=== PATIENT | male | born 1945 | race Caucasian/White ===

== ENCOUNTER 2016-10-17 10:47 | Emergency (ER) | payer MEDICARE, BC ==
[2016-10-17 11:08] VITALS: BP 151/74
--- NOTE | 2016-10-17 11:49 | EDM.PDOC ---
ED HPI GENERAL MEDICAL PROBLEM - General Chief Complaint: Genitourinary Problem Stated Complaint: CATHETER LEAKING Time Seen by Provider: 10/17/16 11:40 Source of Information: Reports: Patient History Limitations: Reports: No Limitations - History of Present Illness INITIAL COMMENTS - FREE TEXT/NARRATIVE: 71-year-old male presents for a new catheter bag. Patient reports that his urinary collection bag is leaking. He has attempted to fix it with tape and glue but has been unsuccessful. Patient has a catheter in place for the last 2 weeks. He is supposed to have surgery on this Sunday. He reports that he is having prostate surgery in [place]. He denies any fevers, nausea, vomiting, dysuria or hematuria. He is here for a new bag and has no other concerns at this time. - Related Data Allergies Allergy/AdvReac Type Severity Reaction Status Date / Time No Known Allergies Allergy Verified 10/17/16 11:08 Home Meds: Home Meds Albuterol [Proair HFA] 2 puff INH Q4HR PRN 08/06/13 [History] Fluticasone Propionate [Flonase] 2 sprays NS DAILY 08/06/13 [History] Fluticasone/Salmeterol [Advair 500-50] 1 puff INH BID 08/06/13 [History] Insulin Detemir [Levemir] 14 units SQ BEDTIME 08/06/13 [History] Levothyroxine 75 mcg PO DAILY 08/06/13 [History] Tiotropium [Spiriva Handihaler] 1 cap INH DAILY 08/06/13 [History] Novalog 0 unit INJECT QID 10/19/14 [History] Insulin Detemir [Levemir] 12 units SQ ACBREAKFAST 10/20/14 [History] Lisinopril 10 mg PO DAILY #30 tablet 10/23/14 [Rx] Sulfamethoxazole/Trimethoprim [Bactrim Ds Tablet] 1 each PO BID #12 tablet 10/23 [Rx] Past Medical History HEENT History: Reports: Hard of Hearing Cardiovascular History: Reports: CAD, Hypertension Musculoskeletal History: Reports: Osteoarthritis Oncologic (Cancer) History: Reports: Lung 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 - Past Surgical History HEENT Surgical History: Reports: Cataract Surgery Respiratory Surgical History: Reports: Thoracotomy Other Respiratory Surgeries/Procedures: rt upper lobe removed Other Oncologic Surgeries/Procedures: to rt upper lobe Social & Family History - Tobacco Use Smoking Status *Q: Former Smoker Used Tobacco, but Quit: Yes Month Tobacco Last Used: october Second Hand Smoke Exposure: No - Caffeine Use Caffeine Use: Reports: Coffee, Soda - Recreational Drug Use Recreational Drug Use: No ED ROS GENERAL - Review of Systems Review Of Systems: See Below Constitutional: Denies: Fever GI/Abdominal: Denies: Nausea, Vomiting : Reports: Other (reports leaking from the cathater bag ). Denies: Hematuria ED EXAM, RENAL/ - Physical Exam Exam: See Below Exam Limited By: No Limitations General Appearance: Alert, WD/WN, No Apparent Distress Respiratory/Chest: No Respiratory Distress (Male) Exam: Other (cathater bag has clear light yellow urine in it) Neurological: Alert, Normal Cognition Psychiatric: Normal Affect, Normal Mood Skin Exam: Warm, Dry, Normal Color Course - Vital Signs Last Recorded V/S: Last Vital Signs Temp 36.9 C 10/17/16 11:04 Pulse 78 10/17/16 11:04 Resp 13 10/17/16 11:04 BP 151/74 H 10/17/16 11:04 Pulse Ox 96 10/17/16 11:04 - Re-Assessments/Exams Free Text/Narrative Re-Assessment/Exam: 10/17/16 11:41 nursing staff with get the patient a new catheter bag. Will discharge home. Discharge instructions as documented. Departure - Departure Time of Disposition: 11:48 Disposition: Home, Self-Care 01 Condition: Good Clinical Impression: Leakage from urinary catheter - Discharge Information Referrals: Chandana Randolph MD [Primary Care Provider] - Forms: ED Department Discharge Additional Instructions: Continue with your current plan of care. Follow-up with your PCP as needed. Please return to the ER should your symptoms change or worsen.
== END 2016-10-17 12:05 | disposition home or self-care (01) ==
LOC: JD.ED 10:47
DX: T83.038A Leakage of other urinary catheter, initial encounter (principal); I25.10 Atherosclerotic heart disease of native coronary artery without angina pectoris; I10 Essential (primary) hypertension; M19.90 Unspecified osteoarthritis, unspecified site; Z79.4 Long term (current) use of insulin; Z79.899 Other long term (current) drug therapy; Z98.49 Cataract extraction status, unspecified eye; Z87.891 Personal history of nicotine dependence
CPT/HCPCS: 99281; 99283

== ENCOUNTER 2019-01-18 22:04 | Emergency (ER) | payer MEDICARE, BC ==
[2019-01-18] MEDS ORDERED: Lidocaine 2% Jelly 10 ML Urojet MUCMEM ONE (22:42)
[2019-01-18 22:43] VITALS: BP 130/61; PULSE 78
[2019-01-18] MEDS ORDERED: Magnesium Citrate Solution 296 ML Bottle PO ONE (22:51)
--- NOTE | 2019-01-18 22:57 | EDM.PDOC ---
ED HPI GENERAL MEDICAL PROBLEM - General Chief Complaint: Gastrointestinal Problem Stated Complaint: DIAHREA Time Seen by Provider: 01/18/19 22:12 Source of Information: Reports: Patient History Limitations: Reports: No Limitations - History of Present Illness INITIAL COMMENTS - FREE TEXT/NARRATIVE: 73 y/o M with constipation. States no BM x 2 days. Has sensation of needing to go but has only been able to push out a few marble sized pieces of stool today. Mild lower abdominal discomfort, no pain. No vomiting. Tried glycerin suppository but it fell out. Took duculax this evening, no additional meds. Otherwise feels well - no fever or recent illness. - Related Data Allergies Allergy/AdvReac Type Severity Reaction Status Date / Time No Known Allergies Allergy Verified 10/17/16 11:08 Home Meds: Home Meds Albuterol [Proair HFA] 2 puff INH Q4HR PRN 08/06/13 [History] Fluticasone Propionate [Flonase] 2 sprays NS DAILY 08/06/13 [History] Fluticasone/Salmeterol [Advair 500-50] 1 puff INH BID 08/06/13 [History] Insulin Detemir [Levemir] 14 units SQ BEDTIME 08/06/13 [History] Levothyroxine 75 mcg PO DAILY 08/06/13 [History] Tiotropium [Spiriva Handihaler] 1 cap INH DAILY 08/06/13 [History] Novalog 0 unit INJECT QID 10/19/14 [History] Insulin Detemir [Levemir] 12 units SQ ACBREAKFAST 10/20/14 [History] Lisinopril 10 mg PO DAILY #30 tablet 10/23/14 [Rx] Sulfamethoxazole/Trimethoprim [Bactrim Ds Tablet] 1 each PO BID #12 tablet 10/23 [Rx] Polyethylene Glycol 3350 [MiraLAX] 17 gm PO BID PRN #20 packet 01/18/19 [Rx] Past Medical History HEENT History: Reports: Hard of Hearing Cardiovascular History: Reports: CAD, Hypertension Respiratory History: Reports: COPD Musculoskeletal History: Reports: Osteoarthritis Endocrine/Metabolic History: Reports: Diabetes, Type I Oncologic (Cancer) History: Reports: Lung 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 - Past Surgical History HEENT Surgical History: Reports: Cataract Surgery Respiratory Surgical History: Reports: Thoracotomy Other Respiratory Surgeries/Procedures: rt upper lobe removed Other Oncologic Surgeries/Procedures: to rt upper lobe Social & Family History - Family History Family Medical History: Noncontributory - Tobacco Use Smoking Status *Q: Former Smoker Used Tobacco, but Quit: Yes Month/Year Tobacco Last Used: 14 years ago - Caffeine Use Caffeine Use: Reports: Coffee, Soda - Recreational Drug Use Recreational Drug Use: No ED ROS GENERAL - Review of Systems Review Of Systems: See Below Constitutional: Denies: Fever HEENT: Reports: No Symptoms Respiratory: Reports: No Symptoms Cardiovascular: Reports: No Symptoms Endocrine: Reports: No Symptoms GI/Abdominal: Denies: Vomiting Musculoskeletal: Reports: No Symptoms Neurological: Reports: No Symptoms Psychiatric: Reports: No Symptoms ED EXAM, GI/ABD - Physical Exam Exam: See Below Exam Limited By: No Limitations General Appearance: Alert, WD/WN, No Apparent Distress Eyes: Bilateral: Normal Appearance Ears: Normal External Exam Nose: Normal Inspection Throat/Mouth: Normal Inspection, Normal Voice Head: Atraumatic, Normocephalic Neck: Normal Inspection, Supple Respiratory/Chest: No Respiratory Distress, Lungs Clear Cardiovascular: Normal Peripheral Pulses, Regular Rate, Rhythm GI/Abdominal Exam: Soft, Non-Tender Back Exam: Normal Inspection Neurological: Alert, Oriented, Normal Cognition Psychiatric: Normal Affect, Normal Mood Skin Exam: Warm, Dry, Intact, Normal Color, No Rash Course - Vital Signs Last Recorded V/S: Last Vital Signs Temp 36.6 C 01/18/19 22:08 Pulse 78 01/18/19 22:08 Resp 18 01/18/19 22:08 BP 130/61 01/18/19 22:08 Pulse Ox 98 01/18/19 22:08 - Orders/Labs/Meds Orders: Active Orders 24 hr Category Date Time Status Enema [RC] ASDIRECTED Care 01/18/19 22:43 Active KUB [Abdomen 1V Flat] [CR] Stat Exams 01/18/19 23:00 Taken Meds: Medications Discontinued Medications Generic Name Dose Route Start Last Admin Trade Name Freq PRN Reason Stop Dose Admin Lidocaine HCl 10 ml 01/18/19 22:42 01/18/19 22:47 Xylocaine 2% Jelly MUCMEM 01/18/19 22:43 10 ml ONETIME ONE Administration Magnesium Citrate 296 ml 01/18/19 22:51 01/18/19 23:35 Citrate Of Magnesia PO 01/18/19 22:52 296 ml ONETIME ONE Administration - Re-Assessments/Exams Free Text/Narrative Re-Assessment/Exam: 01/18/19 23:57 KUB shows noral bowel gas pattern, moderate amount of stool in the rectum. He was given an enema here and didn't have much output, nursing reports that stool was soft. Given mag citrate to drink. Discussed management of constipation at home, recommending miralax for the next few days. He will continue to drink mag citrate at home and can return if he continues inability to have a BM. Departure - Departure Time of Disposition: 23:59 Disposition: Home, Self-Care 01 Clinical Impression: Constipation Qualifiers: Constipation type: unspecified constipation type Qualified Code(s): K59.00 - Constipation, unspecified - Discharge Information Prescriptions: Polyethylene Glycol 3350 [MiraLAX] 17 gm PO BID PRN #20 packet PRN Reason: Constipation Instructions: Constipation, Adult, [id number] Referrals: PCP,Unknown [Ordering Only Provider] - Forms: ED Department Discharge Additional Instructions: 1. Take miralax as prescribed to soften stools and prevent constipation. It is OK to take your dulcolax in addition, but be aware that you may get diarrhea from these medications. 2. Follow up with your primary care provider this week if possible. 3. Return to the ED as needed for any new concerning symptoms, such as vomiting , abdominal pain, fever, or other concerns. - My Orders Last 24 Hours: My Active Orders 01/18/19 22:43 Enema [RC] ASDIRECTED 01/18/19 23:00 KUB [Abdomen 1V Flat] [CR] Stat - Assessment/Plan Last 24 Hours: My Active Orders 01/18/19 22:43 Enema [RC] ASDIRECTED 01/18/19 23:00 KUB [Abdomen 1V Flat] [CR] Stat
--- NOTE | 2019-01-20 08:01 | CR ---
Abdomen: Supine view of the abdomen was obtained. Comparison: No prior abdominal x-ray, previous noncontrast CT abdomen and pelvis exam of 09/25/12. Scoliosis and mild degenerative change are scattered within the spine. Vascular calcification is noted. Bony structures are osteopenic. No soft tissue abnormality is seen. Bowel gas pattern appears normal. Impression: 1. Findings which are believed to be incidental as described above. 2. Nothing acute is identified on supine abdominal x-ray. Diagnostic code #2
== END 2019-01-18 23:39 | disposition home or self-care (01) ==
LOC: JD.ED 22:04
DX: K59.00 Constipation, unspecified (principal); I25.10 Atherosclerotic heart disease of native coronary artery without angina pectoris; I10 Essential (primary) hypertension; J44.9 Chronic obstructive pulmonary disease, unspecified; E10.9 Type 1 diabetes mellitus without complications; Z79.899 Other long term (current) drug therapy; Z79.4 Long term (current) use of insulin; Z79.51 Long term (current) use of inhaled steroids; Z87.891 Personal history of nicotine dependence
CPT/HCPCS: 74018; 99283; A9270; 99282

== ENCOUNTER 2021-09-10 14:56 | Emergency (ER) | payer MEDICARE, BC ==
[2021-09-10 16:06] VITALS: BP 151/80; PULSE 85
== END 2021-09-10 17:36 | disposition home or self-care (01) ==
LOC: JD.ED 14:56
DX: T16.2XXA Foreign body in left ear, initial encounter (principal); E10.9 Type 1 diabetes mellitus without complications; J44.9 Chronic obstructive pulmonary disease, unspecified; I25.10 Atherosclerotic heart disease of native coronary artery without angina pectoris; I10 Essential (primary) hypertension; Z87.891 Personal history of nicotine dependence; Z79.899 Other long term (current) drug therapy
CPT/HCPCS: 99282